=== PATIENT | female | born 1945 | race Hispanic/Latino ===

== ENCOUNTER 2021-12-12 21:18 | Emergency (ER) | payer MEDICARE ==
[2021-12-12] MEDS ORDERED: Ketorolac Tromethamine 30 MG/ML VIAL ONE (21:48)
== END 2021-12-12 23:25 | disposition home or self-care (01) ==
LOC: CSHERS 21:18
DX: S70.01XA Contusion of right hip, initial encounter (principal); I10 Essential (primary) hypertension; I25.10 Atherosclerotic heart disease of native coronary artery without angina pectoris; E11.9 Type 2 diabetes mellitus without complications; D64.9 Anemia, unspecified; E78.5 Hyperlipidemia, unspecified; Z86.73 Personal history of transient ischemic attack (TIA), and cerebral infarction without residual deficits; W05.0XXA Fall from non-moving wheelchair, initial encounter; Z79.899 Other long term (current) drug therapy; Z79.01 Long term (current) use of anticoagulants; Z79.82 Long term (current) use of aspirin
CPT/HCPCS: 70450; 72170; 96374; J1885

== ENCOUNTER 2022-02-03 13:48 | Inpatient (IN) | payer MEDICARE ==
[2022-02-03 14:51] LABS: ALT (SGPT) 23 U/L (8-55); AST (SGOT) 25 U/L (5-34); Albumin 3.5 g/dL (3.4-4.8); Alkaline Phosphatase 76 U/L (40-110); Anion Gap 13 mmol/L (10-20); BUN (Urea Nitrogen) 13 mg/dL (9.8-20.1); Bilirubin, Total 0.4 mg/dL (0.2-1.2); Calc. Creatinine Clearance 0 mL/min (70-130); Calcium 8.6 mg/dL (7.8-10.44); Carbon Dioxide 23 mmol/L (23-31); Chloride 102 mmol/L (98-107); Estimated GFR 89; Globulin 2.9 g/dL (2.4-3.5); Glucose 127 mg/dL (83-110); Potassium 3.9 mmol/L (3.5-5.1); Protein, Total 6.4 g/dL (5.8-8.1); Sodium 134 mmol/L (136-145)
[2022-02-03 15:31] LABS: #Monocytes 0.4 10x3/uL (0.0-1.1); #Neutrophils 5.2 10x3/uL (1.5-8.4); %Basophils 0.6 % (0.0-2.0); %Eosinophils 0.5 % (0.0-6.0); %Lymphocytes 11.5 % (18.0-47.0); %Monocytes 6.6 % (0.0-10.0); %Neutrophils 80.2 % (40.0-75.0); Hemoglobin 10.5 g/dL (12.0-15.5); Mean Corpuscular HGB CONC 32.7 g/dL (32.0-36.0); Mean Corpuscular Hemoglobin 28.4 pg (27.0-33.0); Mean Corpuscular Volume 86.8 fl (81.6-98.3); Mean Platelet Volume 12.2 fl (7.4-10.4); Platelet Count 220 10x3/uL (150-450); White Blood Cell (WBC) Count 6.5 10x3/uL (3.5-10.5)
[2022-02-03] MEDS ORDERED: Aspirin Chewable 81 MG TAB ONE (16:05)
[2022-02-03 16:18] LABS: SARS-CoV-2 NAA Rapid Test Not Detected (NotDetected)
[2022-02-03 17:55] LABS: Troponin I Less than 0.010 ng/mL (< 0.028)
[2022-02-03] MEDS ORDERED: Dextrose 50% Abboject 50 ML SYRINGE SLOW IVP PRN (18:02)
[2022-02-03] MEDS ORDERED: Dextrose 5% in Water 1,000 ML IV PRN (18:02)
[2022-02-03] MEDS ORDERED: HumaLOG 300 UNITS/3 ML VIAL SC PRN ×2 (18:02)
[2022-02-03] MEDS ORDERED: Ondansetron ODT 4 MG TAB PO PRN (18:02)
[2022-02-03 20:37] LABS: Troponin I Less than 0.010 ng/mL (< 0.028)
[2022-02-03] MEDS: Gabapentin 100 MG CAP PO SCH (20:44)
[2022-02-03] MEDS: Apixaban 5 MG TAB PO SCH (20:45)
[2022-02-03] MEDS: Atorvastatin Calcium 20 MG TAB PO SCH (20:45)
[2022-02-03 22:21] VITALS: BMI 23.8
[2022-02-04] MEDS: Acetaminophen 325 MG TAB PO PRN ×4 (03:48→21:26)
[2022-02-04 04:06] LABS: #Basophils 0.1 10x3/uL (0.0-0.2); #Eosinphils 0.1 10x3/uL (0.0-0.5); #Monocytes 0.4 10x3/uL (0.0-1.1); #Neutrophils 2.3 10x3/uL (1.5-8.4); %Basophils 1.4 % (0.0-2.0); %Eosinophils 3.6 % (0.0-6.0); %Lymphocytes 21.7 % (18.0-47.0); %Monocytes 11.3 % (0.0-10.0); %Neutrophils 61.7 % (40.0-75.0); Hemoglobin 10.5 g/dL (12.0-15.5); Mean Corpuscular HGB CONC 32.8 g/dL (32.0-36.0); Mean Corpuscular Volume 85.3 fl (81.6-98.3); Mean Platelet Volume 11.4 fl (7.4-10.4); Platelet Count 214 10x3/uL (150-450); RBC Distribution Width 15.3 % (11.5-14.5); Red Blood Cell (RBC) Count 3.75 10x6/uL (3.90-5.03); White Blood Cell (WBC) Count 3.6 10x3/uL (3.5-10.5)
[2022-02-04 04:20] LABS: Anion Gap 14 mmol/L (10-20); BUN (Urea Nitrogen) 13 mg/dL (9.8-20.1); Calc. Creatinine Clearance 63 mL/min (70-130); Calcium 8.9 mg/dL (7.8-10.44); Carbon Dioxide 23 mmol/L (23-31); Chloride 107 mmol/L (98-107); Estimated GFR 89; Glucose 125 mg/dL (83-110); Magnesium 1.9 mg/dL (1.6-2.6); Potassium 3.9 mmol/L (3.5-5.1); Sodium 140 mmol/L (136-145)
[2022-02-04] MEDS: Aspirin Chewable 81 MG TAB PO SCH (09:50)
[2022-02-04] MEDS: Gabapentin 100 MG CAP PO SCH ×3 (09:50→21:28)
[2022-02-04] MEDS: Lisinopril 10 MG TAB PO SCH (09:51)
[2022-02-04] MEDS: Ferrous Sulfate 325 MG TAB PO SCH (09:51)
[2022-02-04] MEDS: FLUoxetine HCl 20 MG CAP PO SCH (09:51)
[2022-02-04] MEDS: Amiodarone 200 MG TAB PO SCH (09:51)
[2022-02-04] MEDS: Apixaban 5 MG TAB PO SCH ×2 (09:51→21:26)
[2022-02-04] MEDS: Ascorbic Acid 500 mg Chewable Tablet PO SCH (09:51)
[2022-02-04] MEDS: Atorvastatin Calcium 20 MG TAB PO SCH (23:35)
[2022-02-05] MEDS ORDERED: hydrALAZINE 25 MG TAB PO SCH (01:15)
[2022-02-05 04:37] LABS: Hemoglobin 10.9 g/dL (12.0-15.5); Mean Corpuscular HGB CONC 32.3 g/dL (32.0-36.0); Mean Corpuscular Hemoglobin 27.7 pg (27.0-33.0); Mean Corpuscular Volume 85.5 fl (81.6-98.3); Mean Platelet Volume 11.8 fl (7.4-10.4); Platelet Count 224 10x3/uL (150-450); RBC Distribution Width 14.9 % (11.5-14.5); Red Blood Cell (RBC) Count 3.94 10x6/uL (3.90-5.03); White Blood Cell (WBC) Count 3.5 10x3/uL (3.5-10.5)
[2022-02-05 04:52] LABS: Anion Gap 14 mmol/L (10-20); BUN (Urea Nitrogen) 14 mg/dL (9.8-20.1); Calc. Creatinine Clearance 59 mL/min (70-130); Calcium 8.8 mg/dL (7.8-10.44); Carbon Dioxide 23 mmol/L (23-31); Chloride 108 mmol/L (98-107); Estimated GFR 83; Glucose 133 mg/dL (83-110); Potassium 3.8 mmol/L (3.5-5.1); Sodium 141 mmol/L (136-145)
[2022-02-05 05:15] LABS: MDiff Complete? YES
[2022-02-05 05:21] LABS: Eosinophils 1 % (0-10); Lymphocytes 32 % (21-51); Monocytes 14 % (0-10); Neutrophil 52 % (42-75)
[2022-02-05 05:23] LABS: Platelet Morphology Comment Appears Adequate; RBC Morphology Normal
[2022-02-05] MEDS: Aspirin Chewable 81 MG TAB PO SCH (08:11)
[2022-02-05] MEDS: Amiodarone 200 MG TAB PO SCH (08:11)
[2022-02-05] MEDS: Gabapentin 100 MG CAP PO SCH ×2 (08:11→15:00)
[2022-02-05] MEDS: Apixaban 5 MG TAB PO SCH (08:12)
[2022-02-05] MEDS: FLUoxetine HCl 20 MG CAP PO SCH (08:12)
[2022-02-05] MEDS: Ferrous Sulfate 325 MG TAB PO SCH (08:12)
[2022-02-05] MEDS: Ascorbic Acid 500 mg Chewable Tablet PO SCH (08:12)
[2022-02-05] MEDS: Lisinopril 10 MG TAB PO SCH (08:12)
[2022-02-05] MEDS ORDERED: Lisinopril 10 MG TAB PO SCH (08:30)
[2022-02-05] MEDS: hydrALAZINE 25 MG TAB PO SCH ×2 (09:27→14:59)
[2022-02-05] MEDS: Acetaminophen 325 MG TAB PO PRN (11:00)
[2022-02-05] MEDS: Nitroglycerin 0.4 MG TAB (25 Tab Bottle) SL PRN ×2 (11:03→11:18)
[2022-02-05 11:36] LABS: Troponin I Less than 0.010 ng/mL (< 0.028)
[2022-02-05 13:25] VITALS: TEMP 97
[2022-02-05 14:18] LABS: Troponin I Less than 0.010 ng/mL (< 0.028)
[2022-02-05 15:01] VITALS: BP 185/79
[2022-02-06] MEDS ORDERED: Lisinopril 20 MG TAB PO SCH (09:00)
== END 2022-02-05 03:30 | disposition home or self-care (01) | DRG 880 ==
LOC: CSHERS 13:48 → OBSVTOIN 19:46 → CSHTELE 19:46 → UNDOADMOB 19:46 → INTOOBSV 19:46 → OBSVTOIN 02-04 19:48 → CSHTELE 02-04 19:48
PROVIDERS: ADMIT Internal Medicine; ATTEND Hospitalist
DX: F41.0 Panic disorder [episodic paroxysmal anxiety] (principal); I69.354 Hemiplegia and hemiparesis following cerebral infarction affecting left non-dominant side; I10 Essential (primary) hypertension; I48.91 Unspecified atrial fibrillation; G89.29 Other chronic pain; Z20.822 Contact with and (suspected) exposure to COVID-19; E78.5 Hyperlipidemia, unspecified; D50.9 Iron deficiency anemia, unspecified; I48.0 Paroxysmal atrial fibrillation; M94.0 Chondrocostal junction syndrome [Tietze]; G62.9 Polyneuropathy, unspecified; Z88.0 Allergy status to penicillin; Z88.5 Allergy status to narcotic agent; Z88.8 Allergy status to other drugs, medicaments and biological substances; Z79.82 Long term (current) use of aspirin; Z79.899 Other long term (current) drug therapy; Z79.01 Long term (current) use of anticoagulants; Z79.4 Long term (current) use of insulin; Z90.49 Acquired absence of other specified parts of digestive tract; Z90.710 Acquired absence of both cervix and uterus; Z87.891 Personal history of nicotine dependence; I69.398 Other sequelae of cerebral infarction; E11.9 Type 2 diabetes mellitus without complications
CPT/HCPCS: 36415; 36416; 71045; 80048; 80053; 83735; 84443; 84484; 85025; 93005; 93010; 93306; 94760; G0378; J1815

== ENCOUNTER 2022-09-21 17:21 | Inpatient (IN) | payer MEDICARE ==
[~2022-09-21 17:21] MED LIST: Iopamidol 370 76% 100 ML VIAL ONE
[2022-09-21 18:01] LABS: #Eosinphils 0.1 10x3/uL (0.0-0.5); #Monocytes 0.4 10x3/uL (0.0-1.1); #Neutrophils 2.4 10x3/uL (1.5-8.4); %Basophils 0.9 % (0.0-2.0); %Eosinophils 1.8 % (0.0-6.0); %Neutrophils 53.1 % (40.0-75.0); Hemoglobin 11.4 g/dL (12.0-15.5); Mean Corpuscular HGB CONC 33.2 g/dL (32.0-36.0); Mean Corpuscular Hemoglobin 30.9 pg (27.0-33.0); Mean Platelet Volume 11.9 fl (7.4-10.4); Platelet Count 182 10x3/uL (150-450); RBC Distribution Width 12.9 % (11.5-14.5); Red Blood Cell (RBC) Count 3.69 10x6/uL (3.90-5.03); White Blood Cell (WBC) Count 4.5 10x3/uL (3.5-10.5)
[2022-09-21 18:09] LABS: Bilirubin Neg (Negative); Blood, Urine Negative (Negative); Clarity Slightly Cloudy (Clear); Glucose, Urine (Dipstick) Normal (Negative); Ketone, Urine Negative (Negative); Leukocyte 25 (Negative); Nitrite Negative (Negative); Protein, Urine (Dipstick) 15 mg/dl (Neg-Trace); Urobilinogen Normal mg/dL (Less than 2)
[2022-09-21 18:21] LABS: ALT (SGPT) 12 U/L (8-55); AST (SGOT) 15 U/L (5-34); Albumin 4.1 g/dL (3.4-4.8); Alkaline Phosphatase 55 U/L (40-110); Anion Gap 13 mmol/L (10-20); BUN (Urea Nitrogen) 18 mg/dL (9.8-20.1); Bilirubin, Total 0.3 mg/dL (0.2-1.2); Calc. Creatinine Clearance 0 mL/min (70-130); Calcium 8.8 mg/dL (7.8-10.44); Carbon Dioxide 24 mmol/L (23-31); Chloride 107 mmol/L (98-107); Estimated GFR 78; Globulin 2.8 g/dL (2.4-3.5); Glucose 104 mg/dL (83-110); Magnesium 1.8 mg/dL (1.6-2.6); Potassium 4.4 mmol/L (3.5-5.1); Protein, Total 6.9 g/dL (5.8-8.1); Sodium 140 mmol/L (136-145)
[2022-09-21 18:30] LABS: Bacteria/HPF 2+ HPF (None Seen); RBC/HPF 0-3 HPF (0-3); Squamous Epithelial 0-3 HPF (0-3)
[2022-09-21] MEDS ORDERED: cefTRIAXone\\ROCEPHIN 2 GM VIAL ONE (19:37)
[2022-09-21] MEDS ORDERED: hydrALAZINE 20 MG/ML VIAL ONE (19:42)
[2022-09-21] MEDS ORDERED: Ondansetron ODT 4 MG TAB PO PRN (20:03)
[2022-09-21] MEDS ORDERED: Dextrose 5% in Water 1,000 ML IV PRN (20:03)
[2022-09-21] MEDS ORDERED: HumaLOG 300 UNITS/3 ML VIAL SC PRN ×2 (20:03)
[2022-09-21] MEDS ORDERED: Dextrose 50% Abboject 50 ML SYRINGE SLOW IVP PRN (20:03)
[2022-09-21] MEDS ORDERED: Ondansetron PF 4 MG/2 ML Vial IVP PRN (20:03)
[2022-09-21] MEDS ORDERED: Acetaminophen 650 MG Suppository PR PRN (20:03)
[2022-09-21] MEDS ORDERED: Lorazepam 2 MG/ML VIAL SLOW IVP PRN (20:08)
[2022-09-21] MEDS ORDERED: hydrALAZINE 20 MG/ML VIAL SLOW IVP PRN ×2 (20:10→21:21)
[2022-09-21 21:12] LABS: Lactic Acid 1.1 mmol/L (0.5-2.2)
[2022-09-21 21:30] VITALS: BMI 22.8
[2022-09-21] MEDS ORDERED: hydrALAZINE 25 MG TAB PO SCH (21:30)
[2022-09-21] MEDS ORDERED: levETIRAcetam 500 MG/5 ML VIAL SLOW IVP SCH (21:30)
[2022-09-21] MEDS ORDERED: Apixaban 5 MG TAB PO SCH (21:30)
[2022-09-21] MEDS: Sodium Chloride 0.9% 1,000 ML IV SCH (22:00)
[2022-09-21] MEDS: Acetaminophen 325 MG TAB PO PRN (23:21)
[2022-09-22 05:07] LABS: #Basophils 0.1 10x3/uL (0.0-0.2); #Eosinphils 0.1 10x3/uL (0.0-0.5); #Monocytes 0.4 10x3/uL (0.0-1.1); #Neutrophils 2.6 10x3/uL (1.5-8.4); %Basophils 1.2 % (0.0-2.0); %Eosinophils 2.5 % (0.0-6.0); %Lymphocytes 33.7 % (18.0-47.0); %Monocytes 8.6 % (0.0-10.0); %Neutrophils 53.8 % (40.0-75.0); Hemoglobin 11.1 g/dL (12.0-15.5); Mean Corpuscular HGB CONC 32.9 g/dL (32.0-36.0); Mean Corpuscular Hemoglobin 30.5 pg (27.0-33.0); Mean Corpuscular Volume 92.6 fl (81.6-98.3); Mean Platelet Volume 11.6 fl (7.4-10.4); Platelet Count 179 10x3/uL (150-450); RBC Distribution Width 13.1 % (11.5-14.5); Red Blood Cell (RBC) Count 3.64 10x6/uL (3.90-5.03); White Blood Cell (WBC) Count 4.9 10x3/uL (3.5-10.5)
[2022-09-22 05:15] LABS: Anion Gap 11 mmol/L (10-20); BUN (Urea Nitrogen) 12 mg/dL (9.8-20.1); Calc. Creatinine Clearance 62 mL/min (70-130); Calcium 8.6 mg/dL (7.8-10.44); Carbon Dioxide 25 mmol/L (23-31); Cardiac Risk 2.5 (Less than 4.5); Chloride 112 mmol/L (98-107); Cholesterol 130 mg/dl (< 200 Desired); Estimated GFR 90; Glucose 85 mg/dL (83-110); HDL Cholesterol 53 mg/dL (>60 Neg Risk); LDL Cholesterol, Calculated 65 mg/dL; Sodium 144 mmol/L (136-145); Triglycerides 61 mg/dL (Less than 150)
[2022-09-22] MEDS: Acetaminophen 325 MG TAB PO PRN (08:46)
[2022-09-22] MEDS: Apixaban 5 MG TAB PO SCH ×2 (08:47→21:00)
[2022-09-22] MEDS: Sodium Chloride 0.9% 1,000 ML IV SCH (08:47)
[2022-09-22] MEDS: Lisinopril 20 MG TAB PO SCH (08:47)
[2022-09-22] MEDS: Multivitamin W/ Minerals 1 TAB PO SCH (08:47)
[2022-09-22] MEDS: hydrALAZINE 25 MG TAB PO SCH ×3 (08:48→21:00)
[2022-09-22] MEDS ORDERED: levETIRAcetam 500 MG/5 ML VIAL SLOW IVP SCH ×2 (09:00→21:00)
[2022-09-22 10:28] LABS: SARS-CoV-2 NAA Rapid Test Not Detected (NotDetected)
[2022-09-22] MEDS: Cyclobenzaprine 10 MG TAB PO PRN ×2 (13:30→18:49)
[2022-09-22] MEDS: Acetaminophen 500 MG TAB PO PRN ×2 (13:30→18:48)
[2022-09-22] MEDS: cefTRIAXone\\ROCEPHIN 1 GM in Sodium Chloride 0.9% 100 ML IVPB SCH (20:59)
[2022-09-22] MEDS: levETIRAcetam 500 MG TAB PO SCH (21:00)
[2022-09-22] MEDS: Gabapentin 100 MG CAP PO SCH (21:00)
[2022-09-22] MEDS: Atorvastatin Calcium 20 MG TAB PO SCH (21:01)
[2022-09-23 05:18] LABS: #Eosinphils 0.2 10x3/uL (0.0-0.5); #Monocytes 0.4 10x3/uL (0.0-1.1); #Neutrophils 1.7 10x3/uL (1.5-8.4); %Basophils 0.7 % (0.0-2.0); %Eosinophils 5.6 % (0.0-6.0); %Lymphocytes 42.9 % (18.0-47.0); %Monocytes 9.6 % (0.0-10.0); %Neutrophils 41.2 % (40.0-75.0); Hemoglobin 10.9 g/dL (12.0-15.5); Mean Corpuscular HGB CONC 33.7 g/dL (32.0-36.0); Mean Corpuscular Hemoglobin 31.1 pg (27.0-33.0); Mean Platelet Volume 11.5 fl (7.4-10.4); Platelet Count 179 10x3/uL (150-450); RBC Distribution Width 13.1 % (11.5-14.5); Red Blood Cell (RBC) Count 3.51 10x6/uL (3.90-5.03); White Blood Cell (WBC) Count 4.1 10x3/uL (3.5-10.5)
[2022-09-23 05:26] LABS: Anion Gap 11 mmol/L (10-20); BUN (Urea Nitrogen) 10 mg/dL (9.8-20.1); Calc. Creatinine Clearance 59 mL/min (70-130); Calcium 8.7 mg/dL (7.8-10.44); Carbon Dioxide 24 mmol/L (23-31); Chloride 112 mmol/L (98-107); Estimated GFR 88; Glucose 72 mg/dL (83-110); Potassium 3.8 mmol/L (3.5-5.1); Sodium 143 mmol/L (136-145)
[2022-09-23] MEDS: Acetaminophen 500 MG TAB PO PRN ×2 (06:21→21:47)
[2022-09-23] MEDS: Ferrous Sulfate 325 MG TAB PO SCH (08:55)
[2022-09-23] MEDS: Ascorbic Acid 500 mg Chewable Tablet PO SCH (08:57)
[2022-09-23] MEDS: Apixaban 5 MG TAB PO SCH ×2 (08:57→20:20)
[2022-09-23] MEDS: Citalopram 20 MG TAB PO SCH (08:57)
[2022-09-23] MEDS: Amiodarone 200 MG TAB PO SCH (08:58)
[2022-09-23] MEDS: hydrALAZINE 25 MG TAB PO SCH ×3 (09:12→20:21)
[2022-09-23] MEDS: Magnesium Oxide 400 MG TAB PO SCH (09:13)
[2022-09-23] MEDS: levETIRAcetam 500 MG TAB PO SCH ×2 (09:13→20:21)
[2022-09-23] MEDS: Multivitamin W/ Minerals 1 TAB PO SCH (09:13)
[2022-09-23] MEDS: Lisinopril 20 MG TAB PO SCH (09:13)
[2022-09-23] MEDS ORDERED: Amlodipine 5 MG TAB PO SCH (14:00)
[2022-09-23] MEDS: Cyclobenzaprine 10 MG TAB PO PRN (18:46)
[2022-09-23] MEDS: Atorvastatin Calcium 20 MG TAB PO SCH (20:20)
[2022-09-23] MEDS: cefTRIAXone\\ROCEPHIN 1 GM in Sodium Chloride 0.9% 100 ML IVPB SCH ×2 (20:20→20:26)
[2022-09-23] MEDS: Baclofen 10 MG TAB PO SCH (20:21)
[2022-09-23] MEDS: Gabapentin 100 MG CAP PO SCH (20:21)
[2022-09-24] MEDS: Melatonin 3 MG TAB PO PRN ×2 (00:20→20:57)
[2022-09-24] MEDS: Cyclobenzaprine 10 MG TAB PO PRN (00:39)
[2022-09-24] MEDS: Acetaminophen 500 MG TAB PO PRN ×2 (03:40→14:46)
[2022-09-24] MEDS: Baclofen 10 MG TAB PO SCH (10:51)
[2022-09-24] MEDS: traMADol HCl 50 MG TAB PO PRN ×3 (10:51→23:48)
[2022-09-24] MEDS: Ferrous Sulfate 325 MG TAB PO SCH (10:52)
[2022-09-24] MEDS: Amlodipine 10 MG TAB PO SCH (10:52)
[2022-09-24] MEDS: Citalopram 20 MG TAB PO SCH (10:52)
[2022-09-24] MEDS: Multivitamin W/ Minerals 1 TAB PO SCH (10:52)
[2022-09-24] MEDS: Lisinopril 20 MG TAB PO SCH (10:53)
[2022-09-24] MEDS: Ascorbic Acid 500 mg Chewable Tablet PO SCH (10:53)
[2022-09-24] MEDS: Amiodarone 200 MG TAB PO SCH (10:53)
[2022-09-24] MEDS: levETIRAcetam 500 MG TAB PO SCH ×2 (10:53→21:50)
[2022-09-24] MEDS: Apixaban 5 MG TAB PO SCH ×2 (10:53→20:58)
[2022-09-24] MEDS: Magnesium Oxide 400 MG TAB PO SCH (10:54)
[2022-09-24] MEDS: hydrALAZINE 25 MG TAB PO SCH ×3 (10:55→20:58)
[2022-09-24] MEDS ORDERED: Methocarbamol 500 MG TAB PO PRN (17:40)
[2022-09-24] MEDS: Lidocaine 5% Patch TD SCH (18:06)
[2022-09-24] MEDS: cefTRIAXone\\ROCEPHIN 1 GM in Sodium Chloride 0.9% 100 ML IVPB SCH (20:57)
[2022-09-24] MEDS: Gabapentin 100 MG CAP PO SCH (20:58)
[2022-09-24] MEDS: Ketorolac Tromethamine 30 MG/ML VIAL IVP PRN (20:59)
[2022-09-24] MEDS: Atorvastatin Calcium 20 MG TAB PO SCH (21:48)
[2022-09-25] MEDS: traMADol HCl 50 MG TAB PO PRN ×2 (05:53→16:41)
[2022-09-25] MEDS: LIDOCAINE Patch Removal TOP SCH (06:43)
[2022-09-25] MEDS: Ketorolac Tromethamine 30 MG/ML VIAL IVP PRN (09:18)
[2022-09-25] MEDS: Multivitamin W/ Minerals 1 TAB PO SCH (09:19)
[2022-09-25] MEDS: Ferrous Sulfate 325 MG TAB PO SCH (09:19)
[2022-09-25] MEDS: Amlodipine 10 MG TAB PO SCH (09:20)
[2022-09-25] MEDS: Apixaban 5 MG TAB PO SCH ×2 (09:20→20:22)
[2022-09-25] MEDS: hydrALAZINE 25 MG TAB PO SCH ×3 (09:20→20:21)
[2022-09-25] MEDS: Citalopram 20 MG TAB PO SCH (09:20)
[2022-09-25] MEDS: Amiodarone 200 MG TAB PO SCH (09:20)
[2022-09-25] MEDS: Magnesium Oxide 400 MG TAB PO SCH (09:20)
[2022-09-25] MEDS: Lisinopril 20 MG TAB PO SCH (09:20)
[2022-09-25] MEDS: Ascorbic Acid 500 mg Chewable Tablet PO SCH (09:21)
[2022-09-25] MEDS: levETIRAcetam 500 MG TAB PO SCH ×2 (09:21→20:21)
[2022-09-25] MEDS: Acetaminophen 500 MG TAB PO PRN ×2 (16:48→20:25)
[2022-09-25] MEDS: Lidocaine 5% Patch TD SCH (16:52)
[2022-09-25] MEDS ORDERED: predniSONE 20 MG TAB PO SCH (17:00)
[2022-09-25] MEDS: Atorvastatin Calcium 20 MG TAB PO SCH (20:21)
[2022-09-25] MEDS: cefTRIAXone\\ROCEPHIN 1 GM in Sodium Chloride 0.9% 100 ML IVPB SCH (20:22)
[2022-09-25] MEDS: Melatonin 3 MG TAB PO PRN (20:26)
[2022-09-25] MEDS ORDERED: Gabapentin 100 MG CAP PO SCH (21:00)
[2022-09-26] MEDS: Ketorolac Tromethamine 30 MG/ML VIAL IVP PRN (02:26)
[2022-09-26] MEDS: Acetaminophen 500 MG TAB PO PRN (03:15)
[2022-09-26] MEDS: traMADol HCl 50 MG TAB PO PRN (06:23)
[2022-09-26] MEDS: LIDOCAINE Patch Removal TOP SCH (06:54)
[2022-09-26] MEDS ORDERED: Morphine 2 MG/ML VIAL SLOW IVP PRN (07:47)
[2022-09-26] MEDS: Ascorbic Acid 500 mg Chewable Tablet PO SCH (08:03)
[2022-09-26] MEDS: Multivitamin W/ Minerals 1 TAB PO SCH (08:03)
[2022-09-26] MEDS: Lisinopril 20 MG TAB PO SCH (08:04)
[2022-09-26] MEDS: Amiodarone 200 MG TAB PO SCH (08:04)
[2022-09-26] MEDS: levETIRAcetam 500 MG TAB PO SCH (08:04)
[2022-09-26] MEDS: Apixaban 5 MG TAB PO SCH (08:04)
[2022-09-26] MEDS: Ferrous Sulfate 325 MG TAB PO SCH (08:04)
[2022-09-26] MEDS: Amlodipine 10 MG TAB PO SCH (08:04)
[2022-09-26] MEDS: hydrALAZINE 25 MG TAB PO SCH (08:05)
[2022-09-26] MEDS: Magnesium Oxide 400 MG TAB PO SCH (08:05)
[2022-09-26] MEDS: Citalopram 20 MG TAB PO SCH (08:05)
[2022-09-26 12:55] VITALS: BP 161/71; TEMP 98.2
== END 2022-09-26 14:20 | DRG 100 ==
LOC: CSHERS 17:21 → CSHTELE 21:17 → OBSVTOIN 09-23 15:41
PROVIDERS: ADMIT Student in an Organized Health Care Education/Training Program; ATTEND Internal Medicine
DX: R56.9 Unspecified convulsions (principal); G93.41 Metabolic encephalopathy; I69.354 Hemiplegia and hemiparesis following cerebral infarction affecting left non-dominant side; E87.20 Acidosis, unspecified; N39.0 Urinary tract infection, site not specified; I48.19 Other persistent atrial fibrillation; I25.10 Atherosclerotic heart disease of native coronary artery without angina pectoris; E11.9 Type 2 diabetes mellitus without complications; F03.90 Unspecified dementia, unspecified severity, without behavioral disturbance, psychotic disturbance, mood disturbance, and anxiety; I16.0 Hypertensive urgency; D64.9 Anemia, unspecified; I44.0 Atrioventricular block, first degree; Z88.0 Allergy status to penicillin; Z79.01 Long term (current) use of anticoagulants; Z88.5 Allergy status to narcotic agent; Z91.041 Radiographic dye allergy status; Z91.018 Allergy to other foods; Z88.6 Allergy status to analgesic agent; Z79.82 Long term (current) use of aspirin; Z79.899 Other long term (current) drug therapy; Z79.4 Long term (current) use of insulin
CPT/HCPCS: 36415; 36416; 51701; 70496; 70498; 70551; 71045; 72148; 80048; 80053; 80061; 81003; 81015; 83605; 83735; 84146; 84484; 85025; 85652; 86140; 87077; 87086; 93005; 93010; 96365; 96375; 96376; G0378; J0360; J0696; J1815; J1885; J1953; J2272; J3490; J7050; J7512; Q9967; U0002